=== PATIENT | male | born 1995 | race African-American/Black ===

== ENCOUNTER 2022-04-17 05:53 | Emergency (ER) | payer OTHER, SELFPAY ==
[~2022-04-17] VITALS: Ht 182.9 cm; Wt 77.9 kg
[2022-04-17] MEDS ORDERED: NS 1,000 ML IV ONE ×4 (06:10→07:20)
[2022-04-17 06:28] LABS: BASO % 0.1 % (0.0-1.0); HEMATOCRIT 55.2 % (42.0-52.0); HEMOGLOBIN 17.2 g/dl (13.5-17.5); LYMPH # 0.6 10^3/uL (1.5-5.0); LYMPH % 2.2 % (24.0-44.0); MEAN CORPUSCULAR HEMOGLOBIN 32.1 pg (27.0-33.0); MEAN CORPUSCULAR HGB CONC 31.2 g/dl (32.0-36.5); MEAN CORPUSCULAR VOLUME 103.2 fl (80.0-96.0); MONO % 8.3 % (2.0-8.0); NEUTROPHILS # 23.9 10^3/uL (1.5-8.5); NEUTROPHILS % 88.1 % (36.0-66.0); PLATELET COUNT, AUTOMATED 277 10^3/uL (150-450); RED BLOOD COUNT 5.35 10^6/uL (4.30-6.10); WHITE BLOOD COUNT 27.1 10^3/uL (4.0-10.0)
[2022-04-17 06:49] LABS: MONO # 2.3 10^3/uL (0.0-0.8)
[2022-04-17] MEDS ORDERED: cefTRIAXone SOD 2 GM in D5W MINI-BAG PLUS 50 ML IV ONE (07:15)
[2022-04-17 07:22] LABS: ACETAMINOPHEN LEVEL < 2.0 UG/ML (10.0-30.0); ALBUMIN 4.2 GM/DL (3.2-5.2); ALT/SGPT 450 U/L (12-78); BILIRUBIN,DIRECT 0.2 MG/DL (0.0-0.2); BILIRUBIN,TOTAL 0.7 MG/DL (0.2-1.0); BLOOD UREA NITROGEN 20 MG/DL (7-18); CALCIUM LEVEL 7.3 MG/DL (8.5-10.1); CARBON DIOXIDE LEVEL 16 MEQ/L (21-32); CHLORIDE LEVEL 94 MEQ/L (98-107); CREATININE FOR GFR 3.05 MG/DL (0.70-1.30); ETHYL ALCOHOL (ETHANOL) < 0.003 % (0.000-0.010); GLOMERULAR FILTRATION RATE 31.7 (>60); GLUCOSE, FASTING 158 MG/DL (70-100); POTASSIUM SERUM 6.8 MEQ/L (3.5-5.1); SALICYLATE LEVEL < 1.7 MG/DL (5.0-30.0); SODIUM LEVEL 133 MEQ/L (136-145); TOTAL PROTEIN 7.8 GM/DL (6.4-8.2)
[2022-04-17] MEDS ORDERED: HumuLIN R (REGULAR) INSULIN (NovoLIN R) **100U/ML** PER UNIT IV ONE (07:30)
[2022-04-17] MEDS ORDERED: CALCIUM CHLORIDE 10% 1 GM/10 ML SYR IV ONE (07:30)
[2022-04-17] MEDS ORDERED: DEXTROSE 50% 50 ML SYRINGE IV ONE (07:30)
[2022-04-17] MEDS ORDERED: PATIROMER SORBITEX CALCIUM 8.4 GM POWDER PACKET (VELTASSA) PO ONE (07:30)
[2022-04-17] MEDS ORDERED: SODIUM BICARBONATE 8.4% INJ 50 ML SYRINGE IV ONE (07:30)
[2022-04-17 07:42] LABS: C REACTIVE PROTEIN QUANTITATIV < 0.30 MG/DL (0.00-0.30); LIPASE 61 U/L (73-393)
[2022-04-17 07:52] LABS: INR 1.42; PROTHROMBIN TIME 17.8 SECONDS (12.7-14.5)
[2022-04-17 07:55] LABS: ERYTHROCYTE SEDIMENTATION RATE 2 mm/hr (0-15)
[2022-04-17 08:42] LABS: RSV AMPLIFICATION NEGATIVE (NEGATIVE)
[2022-04-17 08:46] LABS: VENOUS BASE EXCESS -14.2 (-2.0-2.0); VENOUS HCO3 16.3 MEQ/L (23.0-27.0); VENOUS O2 SATURATION 67.6 % (60.0-80.0); VENOUS PARTIAL PRESSURE CO2 56.5 mmHg (38.0-50.0); VENOUS PARTIAL PRESSURE O2 48.2 mmHg (30.0-50.0); VENOUS PH 7.077 UNITS (7.330-7.430); VENOUS STANDARD HCO3 13.2 MEQ/L
[2022-04-17] MEDS ORDERED: HOME MED LIST COMPLETE! XX SCH (09:15)
[2022-04-17 09:43] LABS: BACTERIA, URINE LARGE AMOUNT
[2022-04-17] MEDS ORDERED: D5W 1,000 ML IV ONE (09:45)
[2022-04-17] MEDS: NS 1,000 ML IV SCH ×7 (09:45→21:04)
[2022-04-17 09:48] LABS: SQUAMOUS EPITHELIAL CELL URINE SMALL AMOUNT /hpf (SMALL AMT)
[2022-04-17 09:49] LABS: GRANULAR CAST, URINE 0-1 /lpf; HYALINE CAST, URINE NONE SEEN /lpf (0-1); TRANSITIONAL EPI CELLS, URINE SMALL AMOUNT /hpf
[2022-04-17 09:57] LABS: AMPHETAMINES LEVEL URINE NEGATIVE (NEGATIVE); BARBITURATES URINE NEGATIVE (NEGATIVE); BENZODIAZEPINES URINE NEGATIVE (NEGATIVE); CANNABINOIDS URINE NEGATIVE (NEGATIVE); COCAINE METABOLITE URINE NEGATIVE (NEGATIVE); METHADONE URINE NEGATIVE (NEGATIVE); OPIATES URINE NEGATIVE (NEGATIVE); PHENCYCLIDINE URINE NEGATIVE (NEGATIVE)
[2022-04-17] MEDS ORDERED: VANCOMYCIN HCL 1,500 MG in NS 250 ML IV ONE (13:10)
[2022-04-17] MEDS ORDERED: VANCOMYCIN HCL 750 MG, VIAL MATE ADAPTER 1 EACH in D5W 250 ML IV ONE ×6 (14:00)
[2022-04-17 14:03] LABS: VENOUS BASE EXCESS -21.2 (-2.0-2.0); VENOUS HCO3 7.4 MEQ/L (23.0-27.0); VENOUS O2 SATURATION 99.1 % (60.0-80.0); VENOUS PARTIAL PRESSURE CO2 26.5 mmHg (38.0-50.0); VENOUS PARTIAL PRESSURE O2 165.5 mmHg (30.0-50.0); VENOUS PH 7.064 UNITS (7.330-7.430); VENOUS STANDARD HCO3 8.5 MEQ/L; VENOUS TOTAL CO2 8.2 MEQ/L (24.0-28.0)
[2022-04-17] MEDS ORDERED: SODIUM BICARBONATE 8.4% INJ 50 ML SYRINGE IV STA ×2 (14:19)
[2022-04-17] MEDS: MORPHINE 2 MG/ML 1ML VIAL IV PRN ×2 (14:52→15:54)
[2022-04-17 15:16] LABS: HEMATOCRIT 57.1 % (42.0-52.0); HEMOGLOBIN 18.3 g/dl (13.5-17.5); MEAN CORPUSCULAR HEMOGLOBIN 32.6 pg (27.0-33.0); MEAN CORPUSCULAR VOLUME 101.6 fl (80.0-96.0); PLATELET COUNT, AUTOMATED 189 10^3/uL (150-450); RED BLOOD COUNT 5.62 10^6/uL (4.30-6.10)
[2022-04-17 15:21] LABS: WHITE BLOOD COUNT 37.4 10^3/uL (4.0-10.0)
[2022-04-17 16:29] LABS: CALCIUM LEVEL 6.4 MG/DL (8.5-10.1); CREATININE FOR GFR 2.97 MG/DL (0.70-1.30); GLOMERULAR FILTRATION RATE 32.7 (>60); POTASSIUM SERUM 5.7 MEQ/L (3.5-5.1)
[2022-04-17 17:01] LABS: ABG BASE EXCESS -5.5 (-2.0-2.0); ABG O2 SATURATION 97.7 % (95.0-99.0); ABG PARTIAL PRESSURE CO2 34.8 mmHg (35.0-45.0); ABG PARTIAL PRESSURE O2 103.7 mmHg (75.0-100.0); ABG STANDARD HCO3 20.1 MEQ/L (22.0-26.0); ABG TOTAL CO2 20.1 MEQ/L (22.0-29.0); ABG pH (ARTERIAL) 7.355 UNITS (7.350-7.450)
[2022-04-17] MEDS ORDERED: traMADol 50 MG TAB PO ONE (18:15)
[2022-04-17 20:15] VITALS: BP 142/91
[2022-04-17] MEDS ORDERED: PERCOCET 5MG/325MG TAB PO ONE (20:25)
[2022-04-17] MEDS ORDERED: SODIUM BICARBONATE 100 MEQ in D5W 1,000 ML IV SCH (20:30)
[2022-04-18 11:45] LABS: HEPATITIS B SURFACE ANTIGEN NEGATIVE (NEGATIVE)
[2022-04-18 12:10] LABS: HEPATITIS B CORE ANTIBODY IGM NEGATIVE (NEGATIVE); HEPATITIS C VIRUS ABY INDEX 0.1 INDEX (<0.8)
[2022-04-18 13:36] LABS: MAGNESIUM LEVEL 3.5 MG/DL (1.8-2.4)
[2022-04-18 13:51] LABS: PHOSPHORUS LEVEL 16.7 MG/DL (2.5-4.9)
== END 2022-04-17 21:10 | disposition short-term general hospital (02) ==
LOC: EDBD 05:53 → M ED 05:53
DX: N17.9 Acute kidney failure, unspecified (principal); E86.0 Dehydration; B19.9 Unspecified viral hepatitis without hepatic coma; M62.82 Rhabdomyolysis
CPT/HCPCS: 36415; 36600; 70450; 71045; 71250; 72141; 72146; 72148; 73590; 74176; 80048; 80076; 80143; 80307; 81000; 81002; 82077; 82330; 82550; 82803; 83605; 83690; 83735; 83874; 83930; 84100; 84443; 85025; 85027; 85610; 85652; 85730; 86140; 86705; 86709; 86803; 87040; 87077; 87086; 87340; 87631; 93005; 93041; 96361; 96365; 96366; 96367; 96375; 96376; 99291; 99292; J0696; J1815; J2270; J3370